=== PATIENT | female | born 2005 | race African-American/Black ===

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

== ENCOUNTER 2023-05-08 15:03 | Emergency (ER) | payer MEDICAID ==
[~2023-05-08] VITALS: Ht 177.8 cm; Wt 56.0 kg
[2023-05-08 15:13] VITALS: O2SAT 99
[2023-05-08 16:29] LABS: BASOPHILS % 0.7 % (0.0-2.0); EOSINOPHILS % 1.2 % (0.0-5.0); HEMOGLOBIN. 11.9 g/dL (12.0-16.0); LYMPHOCYTES % 18.2 % (20.0-50.0); MEAN CORPUSCULAR HEMOGLOBIN 32.7 pg (28.0-32.0); MEAN CORPUSCULAR HGB CONC 33.9 g/dL (31.0-37.0); MEAN CORPUSCULAR VOLUME 96.3 fL (81.0-99.0); MEAN PLATELET VOLUME 6.7 fl (7.4-10.4); MONOCYTES % 5.6 % (2.0-8.0); NEUTROPHILS % 74.3 % (40.0-76.0); PLATELET 231 x1000/uL (130-400); RED BLOOD CELL COUNT 3.63 mill/uL (4.2-5.4); WHITE BLOOD COUNT 7.7 x1000/uL (4.5-11.0)
[2023-05-08 16:54] LABS: ALANINE AMINOTRANSFERASE 24 IU/L (10-49); ALBUMIN 4.4 g/dL (3.2-4.8); ASPARTATE AMINOTRANSFERASE 22 IU/L (<34); B-HCG QUANTITATIVE 32164 mIU/mL (<3); BILIRUBIN TOTAL 0.3 mg/dL (0.1-1.0); CARBON DIOXIDE 24 mEq/L (21-32); CHLORIDE 107 mEq/L (98-107); CREATININE 0.6 mg/dL (0.6-1.0); GLUCOSE 99 mg/dL (70-105); PROTEIN TOTAL 7.1 g/dL (6.0-8.3); SODIUM 137 mEq/L (136-145); UREA NITROGEN BLOOD 11 mg/dL (9-23)
[2023-05-08 18:53] VITALS: BP 116/84; PULSE 109; RESP 18; TEMP 99.2
== END 2023-05-08 19:46 | disposition home or self-care (01) ==
LOC: ER 15:03
DX: O36.4XX0 Maternal care for intrauterine death, not applicable or unspecified (principal); Z3A.12 12 weeks gestation of pregnancy
CPT/HCPCS: 36415; 76805; 80053; 84702; 85025; 86850; 86900; 99284